=== PATIENT | female | born 1960 | race American Indian/Alaskan Native ===

== ENCOUNTER 2022-01-27 18:15 | Inpatient (IN) | payer MEDICARE ==
[2022-01-27] MEDS ORDERED: LORazepam 2 MG TAB PO PRN (21:49)
[2022-01-27] MEDS ORDERED: ONDANSETRON 4 MG ODT TAB PO PRN (21:51)
[2022-01-28 07:40] LABS: Basophils # (Auto) 0.1 K/mm3 (0.0-0.1); Basophils % (Auto) 1.5 % (0.0-1.8); Eosinophils # (Auto) 0.1 K/mm3 (0.0-0.4); Eosinophils % (Auto) 1.8 % (0.0-4.3); Hematocrit 40.1 % (30.3-42.9); Hemoglobin 13.9 gm/dl (10.1-14.3); Lymphocytes # (Auto) 1.1 K/mm3 (1.2-5.4); Lymphocytes % (Auto) 26.1 % (13.4-35.0); Mean Corpuscular HGB Conc 35 % (30-34); Mean Corpuscular Volume 97 fl (79-97); Monocytes # (Auto) 0.5 K/mm3 (0.0-0.8); Monocytes % (Auto) 10.7 % (0.0-7.3); Platelet Count 189 K/mm3 (140-440); Red Blood Count 4.14 M/mm3 (3.65-5.03); Red Cell Distribution Width 15.8 % (13.2-15.2)
[2022-01-28 08:03] LABS: Albumin 5.1 g/dL (3.9-5); Calcium 9.8 mg/dL (8.4-10.2)
[2022-01-28 08:14] LABS: Chol/HDL Ratio 1.47 %
[2022-01-28 08:22] LABS: Hepatitis B Surface Antigen Non-Reactive (Negative); Hepatitis C Virus Antibody Non-Reactive (NonReactive)
--- NOTE | 2022-01-28 11:05 | History and Physical Report ---
GP History & Physical - History of Present Illness Date of admission: 01/27/22 Date of Examination: 01/28/22 Reason for Admission: Danger to self, Failure of Outpatient Treatment, Severe anxiety/depression History of Present Illness: The patient was seen today. She has a history of schizoaffective disorder and bipolar, htn, seizure, osteoarthritis, diverticulitis TIA. The patient was admitted to [facility] after placing a plastic bag over her 's head, in which the caregiver intervened, according to reports. During my evaluation the patient is lying in bed. She appears withdrawn. Her affect is flat. She denies feeling depressed. She states "I feel okay." She says she was admitted because she got into an argument with her . She says "I made a statement that I would kill my but I didn't mean it." She does not mention the plastic bag incident. The patient says she was drinking. She says she "doesn't drink that much but on weekends." The patient says she drinks a cup of liquor and beer on the weekend. She could not recall what medications she takes for her bipolar. She denies hallucinations of any kind. PAST PSYCHIATRIC HISTORY: Diagnoses: Bipolar, schizoaffective Suicide attempts or Self-harm behavior: Denies Prior psychiatric hospitalizations: Denies Substance Abuse history: alcohol Previous psychiatric medications tried: could not recall Outpatient treatment: Yes PAST MEDICAL HISTORY: SOCIAL HISTORY Marital Status: Living Arrangements: Lives with spouse Employment Status: Disabled Access to guns/weapons: Denies History of Abuse: Denies Legal History: Denies REVIEW OF SYSTEMS Constitutional: Negative for weight loss ENT: Negative for stridor Respiratory: Negative for cough or hemoptysis All other systems reviewed and are negative MENTAL STATUS EXAMINATION General Appearance and Behavior: Age appropriate, wearing appropriate clothes, cooperative Cooperation: cooperative Psychomotor Behavior: Psychomotor normal Mood: "okay" Affect and affective range: flat Thought Process: goal-oriented Thought Content: reality-based Speech: Normal volume, Regular rate and rhythm Suicidal Ideation: Denies Homicidal Ideation: Denies Hallucination: Denies Delusions: Denies Impulse Control: Impaired Insight and Judgment: Limited Memory: Limited Attention: limited Orientation: Alert and oriented to time and person ASSESSMENT Bipolar Disorder Alcohol Use Disorder TREATMENT Patient admitted for inpatient psychiatric evaluation, medication adjustment and close monitoring The patient's behavior, mood, sleep and appetite will be closely monitored. Patient enrolled in individual and group therapeutic sessions and encouraged to attend. Patient provided with a safe and structured environment. Patient's physical health needs will be addressed by the Hospitalist. Hospitalist Consulted Labs including CBC, CMP, Lipid profile and Hemoglobin A1C levels ordered for baseline reference Social Assessment will be completed and the Teacher'S Aide will work with patient and family to ensure a suitable and safe disposition Medication adjustment will be made as clinically indicated Continue medications Usual Wellness Scientology/Preservation: - Start Trazodone 50 mg po QHS & 50 mg po QHS PRN between 10 PM & 2 AM for insomnia - Start Melatonin 5 mg po QHS to promote circadian rhythm The patient agreed on the treatment plan, understood the risk, benefit, alternative treatment, potential consequence of no treatment, and gave informed consent. Estimated days: 7 Post hospital care: primary care provider, psychiatric provider Case staffed with Dr. Bernal Legal Status: Voluntary Reaction to Hospitalization: Accepting Medications and Allergies Allergies Allergy/AdvReac Type Severity Reaction Status Date / Time No Known Allergies Allergy Verified 01/27/22 23:24 Home Medications Medication Instructions Recorded Confirmed Last Taken Type Divalproex ER [Depakote ER] 1,000 mg PO QHS 01/28/22 01/28/22 Unknown History Divalproex ER [Depakote ER] 500 mg PO QAM 01/28/22 01/28/22 Unknown History FLUoxetine HCL [PROzac] 40 mg PO DAILY 01/28/22 01/28/22 Unknown History Losartan [Cozaar] 50 mg PO QDAY 01/28/22 01/28/22 Unknown History Pravastatin [Pravachol] 20 mg PO QHS 01/28/22 01/28/22 Unknown History QUEtiapine [SEROquel] 200 mg PO HS 01/28/22 01/28/22 Unknown History amLODIPine 5 mg PO DAILY 01/28/22 01/28/22 Unknown History Active Meds: Active Medications Lorazepam (Lorazepam 2 Mg Tab) 2 mg PO Q6H PRN PRN Reason: Alcohol Withdrawal Last Admin: 01/27/22 23:30 Dose: 2 mg Ondansetron HCl (Ondansetron 4 Mg Odt Tab) 4 mg PO Q8H PRN PRN Reason: Nausea And Vomiting Last Admin: 01/27/22 23:30 Dose: 4 mg Results - Results Labs/Vitals: Laboratory Last Values WBC 4.4 K/mm3 (4.5-11.0) L 01/28/22 07:21 RBC 4.14 M/mm3 (3.65-5.03) 01/28/22 07:21 Hgb 13.9 gm/dl (10.1-14.3) 01/28/22 07:21 Hct 40.1 % (30.3-42.9) 01/28/22 07:21 MCV 97 fl (79-97) 01/28/22 07:21 MCH 34 pg (28-32) H 01/28/22 07:21 MCHC 35 % (30-34) H 01/28/22 07:21 RDW 15.8 % (13.2-15.2) H 01/28/22 07:21 Plt Count 189 K/mm3 (140-440) 01/28/22 07:21 Lymph % (Auto) 26.1 % (13.4-35.0) 01/28/22 07:21 Tyrrell % (Auto) 10.7 % (0.0-7.3) H 01/28/22 07:21 Eos % (Auto) 1.8 % (0.0-4.3) 01/28/22 07:21 Baso % (Auto) 1.5 % (0.0-1.8) 01/28/22 07:21 Lymph # (Auto) 1.1 K/mm3 (1.2-5.4) L 01/28/22 07:21 Tyrrell # (Auto) 0.5 K/mm3 (0.0-0.8) 01/28/22 07:21 Eos # (Auto) 0.1 K/mm3 (0.0-0.4) 01/28/22 07:21 Baso # (Auto) 0.1 K/mm3 (0.0-0.1) 01/28/22 07:21 Seg Neutrophils % 59.9 % (40.0-70.0) 01/28/22 07:21 Seg Neutrophils # 2.6 K/mm3 (1.8-7.7) 01/28/22 07:21 Sodium 134 mmol/L (137-145) L 01/28/22 07:21 Potassium 3.6 mmol/L (3.6-5.0) 01/28/22 07:21 Chloride 93.0 mmol/L (98-107) L 01/28/22 07:21 Carbon Dioxide 25 mmol/L (22-30) 01/28/22 07:21 Anion Gap 20 mmol/L 01/28/22 07:21 BUN 10 mg/dL (7-17) 01/28/22 07:21 Creatinine 1.2 mg/dL (0.6-1.2) 01/28/22 07:21 Estimated GFR 55 ml/min 01/28/22 07:21 BUN/Creatinine Ratio 8 % 01/28/22 07:21 Glucose 131 mg/dL (65-100) H 01/28/22 07:21 Hemoglobin A1c 5.7 % (4-6) 01/28/22 07:21 Calcium 9.8 mg/dL (8.4-10.2) 01/28/22 07:21 Total Bilirubin 1.10 mg/dL (0.1-1.2) 01/28/22 07:21 AST 36 units/L (5-40) 01/28/22 07:21 ALT 17 units/L (7-56) 01/28/22 07:21 Alkaline Phosphatase 108 units/L (35-129) 01/28/22 07:21 Total Protein 8.3 g/dL (6.3-8.2) H 01/28/22 07:21 Albumin 5.1 g/dL (3.9-5) H 01/28/22 07:21 Albumin/Globulin Ratio 1.6 % 01/28/22 07:21 Triglycerides 90 mg/dL (2-149) 01/28/22 07:21 Cholesterol 363 mg/dL (50-199) H 01/28/22 07:21 LDL Cholesterol Direct 136 mg/dL (50-130) H 01/28/22 07:21 HDL Cholesterol 246 mg/dL (40-59) H 01/28/22 07:21 Cholesterol/HDL Ratio 1.47 % 01/28/22 07:21 Hepatitis A IgM Ab Non-reactive (NonReactive) 01/28/22 07:21 Hep Bs Antigen Non-reactive (Negative) 01/28/22 07:21 Hep B Core IgM Ab Non-reactive (NonReactive) 01/28/22 07:21 Hepatitis C Antibody Non-reactive (NonReactive) 01/28/22 07:21 Last Vital Signs Temp 98.5 F 01/28/22 06:29 Pulse 105 H 01/28/22 06:29 Resp 18 01/28/22 06:29 BP 139/85 01/28/22 06:29 Pulse Ox 91 01/28/22 06:29 Physical Examination - Constitutional Vitals: Vital Signs Temp Pulse Resp BP Pulse Ox 98.5 F 105 H 18 139/85 91 01/28/22 06:29 01/28/22 06:29 01/28/22 06:29 01/28/22 06:29 01/28/22 06:29 Temperature -Last 24 Hours Temperature 98.5 F Temperature 98.1 F Mental Status Exam - Vital signs Last Vital Signs Temp 98.5 F 01/28/22 06:29 Pulse 105 H 01/28/22 06:29 Resp 18 01/28/22 06:29 BP 139/85 01/28/22 06:29 Pulse Ox 91 01/28/22 06:29 Physician Certification - Certification Statement Physician Certification Statement: This is an acknowledgement statement that CHRISTY LEBRON is a 61 year old F who requires inpatient psychiatric admission for treatment which could reasonably be expected to improve the patient's condition for Estimated period of time patient will need to remain in the hospital: [ ] Plan for post-hospital care: [ ]
[2022-01-28] MEDS ORDERED: NON-FORMULARY EACH (Fluoxetine Hcl [Prozac] 40 MG Capsule) PO SCH (11:15)
[2022-01-28] MEDS: amLODIPine 5 MG TAB PO SCH (11:59)
[2022-01-28] MEDS: LOSARTAN 50 MG TAB PO SCH (11:59)
[2022-01-28] MEDS: FLUoxetine 20 MG CAP PO SCH (11:59)
--- NOTE | 2022-01-28 15:46 | Consultation ---
History of Present Illness - Reason for Consult Consult date: 01/28/22 Medical consult Requesting physician: JASON DE GUZMAN - History of Present Illness Patient was admitted with homicidal ideation Hospital service was consulted for medical management 61-year-old female patient with significant past medical history of hypertension, dyslipidemia, seizures, osteoarthritis, diverticulitis and TIA and bipolar disorder, schizoaffective disorder was admitted to [facility] with history of danger to self, failure of outpatient treatment and severe anxiety and depression for further management. Patient was homicidal and trying to hurt her , At the time of my evaluation patient was calm and quiet and response to simple questions appropriately , Patient denies any chest pain or shortness of breath Denies any headache or dizziness denies any nausea vomiting or abdominal pain. Past History Past Medical History: arthritis, hypertension, hyperlipidemia Past Surgical History: No surgical history Social history: alcohol abuse Family history: no significant family history Medications and Allergies Allergies Allergy/AdvReac Type Severity Reaction Status Date / Time No Known Allergies Allergy Verified 01/27/22 23:24 Home Medications Medication Instructions Recorded Confirmed Last Taken Type Divalproex ER [Depakote ER] 1,000 mg PO QHS 01/28/22 01/28/22 Unknown History Divalproex ER [Depakote ER] 500 mg PO QAM 01/28/22 01/28/22 Unknown History FLUoxetine HCL [PROzac] 40 mg PO DAILY 01/28/22 01/28/22 Unknown History Losartan [Cozaar] 50 mg PO QDAY 01/28/22 01/28/22 Unknown History Pravastatin [Pravachol] 20 mg PO QHS 01/28/22 01/28/22 Unknown History QUEtiapine [SEROquel] 200 mg PO HS 01/28/22 01/28/22 Unknown History amLODIPine 5 mg PO DAILY 01/28/22 01/28/22 Unknown History Active Meds: Active Medications Amlodipine Besylate (Amlodipine 5 Mg Tab) 5 mg PO DAILY [facility] Last Admin: 01/28/22 11:59 Dose: 5 mg Divalproex Sodium (Divalproex Er 500 Mg Tab) 500 mg PO QAM [facility] Divalproex Sodium (Divalproex Er 500 Mg Tab) 1,000 mg PO QHS [facility] Fluoxetine HCl (Fluoxetine 20 Mg Cap) 40 mg PO QDAY [facility] Last Admin: 01/28/22 11:59 Dose: 40 mg Lorazepam (Lorazepam 2 Mg Tab) 2 mg PO Q6H PRN PRN Reason: Alcohol Withdrawal Last Admin: 01/27/22 23:30 Dose: 2 mg Losartan Potassium (Losartan 50 Mg Tab) 50 mg PO QDAY [facility] Last Admin: 01/28/22 11:59 Dose: 50 mg Ondansetron HCl (Ondansetron 4 Mg Odt Tab) 4 mg PO Q8H PRN PRN Reason: Nausea And Vomiting Last Admin: 01/27/22 23:30 Dose: 4 mg Pravastatin Sodium (Pravastatin 20 Mg Tab) 20 mg PO QHS [facility] Review of Systems Constitutional: fatigue, weakness, no weight loss, no weight gain Ears, nose, mouth and throat: no nasal congestion, no nasal discharge Cardiovascular: no chest pain, no orthopnea, no palpitations Respiratory: no cough, no shortness of breath Gastrointestinal: no abdominal pain, no nausea, no vomiting Musculoskeletal: no myalgias, no arthritis Integumentary: no rash, no lesions Neurological: no syncope, no tremors Psychiatric: anxiety, depression Hematologic/Lymphatic: no easy bruising, no easy bleeding Allergic/Immunologic: no urticaria, no allergic rhinitis Exam - Constitutional Vitals: Temp Pulse Resp BP Pulse Ox 98.5 F 105 H 18 139/85 91 01/28/22 06:29 01/28/22 11:59 01/28/22 06:29 01/28/22 11:59 01/28/22 06:29 General appearance: Present: no acute distress, well-nourished - EENT Eyes: Present: PERRL, EOM intact - Neck Neck: Present: supple, normal ROM - Cardiovascular Rhythm: regular Heart Sounds: Present: S1 & S2 - Extremities Extremities: no ischemia, No edema - Abdominal General gastrointestinal: Present: soft, non-tender, normal bowel sounds - Integumentary Integumentary: Present: clear, warm - Musculoskeletal Musculoskeletal: strength equal bilaterally, generalized weakness - Psychiatric Psychiatric: appropriate mood/affect - Neurologic Neurologic: moves all extremities Results - Labs CBC & Chem 7: 01/28/22 07:21 01/28/22 07:21 Labs: Abnormal lab results 01/28/22 01/28/22 Range/Units 07:21 07:21 WBC 4.4 L (4.5-11.0) K/mm3 MCH 34 H (28-32) pg MCHC 35 H (30-34) % RDW 15.8 H (13.2-15.2) % Crane % (Auto) 10.7 H (0.0-7.3) % Lymph # (Auto) 1.1 L (1.2-5.4) K/mm3 Sodium 134 L (137-145) mmol/L Chloride 93.0 L (98-107) mmol/L Glucose 131 H (65-100) mg/dL Total Protein 8.3 H (6.3-8.2) g/dL Albumin 5.1 H (3.9-5) g/dL Cholesterol 363 H (50-199) mg/dL LDL Cholesterol Direct 136 H (50-130) mg/dL HDL Cholesterol 246 H (40-59) mg/dL Assessment and Plan Hypertension; moderate control Resume home antihypertensives As needed medications Dyslipidemia; continue low-cholesterol diet Statin and supportive care Hyponatremia; closely monitor electrolytes Consider normal saline, sodium chloride pills Gastroesophageal reflux disease--; Pepcid, supportive care -- DVT prophylaxis SCDs while resting Ambulate as tolerated We will closely monitor the patient and adjust management as needed; Thank you for this consultation we will follow the patient along with you Call us with questions
[2022-01-28] MEDS: DIVALPROEX ER 500 MG TAB PO SCH (21:09)
[2022-01-28] MEDS: PRAVASTATIN 20 MG TAB PO SCH (21:10)
[2022-01-29] MEDS: LOSARTAN 50 MG TAB PO SCH (09:03)
[2022-01-29] MEDS: DIVALPROEX ER 500 MG TAB PO SCH ×2 (09:03→21:10)
[2022-01-29] MEDS: FLUoxetine 20 MG CAP PO SCH (09:03)
[2022-01-29] MEDS: amLODIPine 5 MG TAB PO SCH (09:03)
--- NOTE | 2022-01-29 11:34 | Progress Note ---
Subjective Date of service: 01/29/22 Principal diagnosis: Bipolar Disorder Subjective Comment: The patient was seen today. She is lying in bed. She appears depressed, although she denies. Her affect if flat. She denies SI/HI. I ask her about the situation of her putting a plastic bag over her husbands head. She says "I tried to. I was tired of him calling me names." She says "I really was just trying to scare him." She denies hallucinations. REVIEW OF SYSTEMS Constitutional: Negative for weight loss ENT: Negative for stridor Respiratory: Negative for cough or hemoptysis All other systems reviewed and are negative MENTAL STATUS EXAMINATION General Appearance and Behavior: Age appropriate, wearing appropriate clothes, cooperative Cooperation: cooperative Psychomotor Behavior: Psychomotor normal Mood: "okay" Affect and affective range: flat Thought Process: goal-oriented Thought Content: reality-based Speech: Normal volume, Regular rate and rhythm Suicidal Ideation: Denies Homicidal Ideation: Denies Hallucination: Denies Delusions: Denies Impulse Control: Impaired Insight and Judgment: Limited Memory: Limited Attention: limited Orientation: Alert and oriented to time and person ASSESSMENT Bipolar Disorder Alcohol Use Disorder TREATMENT Patient admitted for inpatient psychiatric evaluation, medication adjustment and close monitoring The patient's behavior, mood, sleep and appetite will be closely monitored. Patient enrolled in individual and group therapeutic sessions and encouraged to attend. Patient provided with a safe and structured environment. Patient's physical health needs will be addressed by the Hospitalist. Hospitalist Consulted Labs including CBC, CMP, Lipid profile and Hemoglobin A1C levels ordered for baseline reference Social Assessment will be completed and the Dry Transfer Man will work with patient and family to ensure a suitable and safe disposition Medication adjustment will be made as clinically indicated Continue medications Usual Wellness Quaker/Preservation: - Start Trazodone 50 mg po QHS & 50 mg po QHS PRN between 10 PM & 2 AM for insomnia - Start Melatonin 5 mg po QHS to promote circadian rhythm The patient agreed on the treatment plan, understood the risk, benefit, alternative treatment, potential consequence of no treatment, and gave informed consent. Estimated days: 7 Post hospital care: primary care provider, psychiatric provider Case staffed with Dr. Bernal Medications and Allergies Allergies Allergy/AdvReac Type Severity Reaction Status Date / Time No Known Allergies Allergy Verified 01/27/22 23:24 Home Medications Medication Instructions Recorded Confirmed Last Taken Type Divalproex ER [Depakote ER] 1,000 mg PO QHS 01/28/22 01/28/22 Unknown History Divalproex ER [Depakote ER] 500 mg PO QAM 01/28/22 01/28/22 Unknown History FLUoxetine HCL [PROzac] 40 mg PO DAILY 01/28/22 01/28/22 Unknown History Losartan [Cozaar] 50 mg PO QDAY 01/28/22 01/28/22 Unknown History Pravastatin [Pravachol] 20 mg PO QHS 01/28/22 01/28/22 Unknown History QUEtiapine [SEROquel] 200 mg PO HS 01/28/22 01/28/22 Unknown History amLODIPine 5 mg PO DAILY 01/28/22 01/28/22 Unknown History Active Meds: Active Medications Amlodipine Besylate (Amlodipine 5 Mg Tab) 5 mg PO DAILY [facility] Last Admin: 01/29/22 09:03 Dose: 5 mg Divalproex Sodium ([facility]ex Er 500 Mg Tab) [facility] [place] Last Admin: 01/29/22 09:03 Dose: 500 mg Divalproex Sodium (Divalproex Er 500 Mg Tab) 1,000 mg PO QHS [facility] Last Admin: 01/28/22 21:09 Dose: 1,000 mg Fluoxetine HCl (Fluoxetine 20 Mg Cap) 40 mg PO QDAY [facility] Last Admin: 01/29/22 09:03 Dose: 40 mg Lorazepam (Lorazepam 2 Mg Tab) 2 mg PO Q6H PRN PRN Reason: Alcohol Withdrawal Last Admin: 01/27/22 23:30 Dose: 2 mg Losartan Potassium (Losartan 50 Mg Tab) 50 mg PO QDAY [facility] Last Admin: 01/29/22 09:03 Dose: 50 mg Ondansetron HCl (Ondansetron 4 Mg Odt Tab) 4 mg PO Q8H PRN PRN Reason: Nausea And Vomiting Last Admin: 01/27/22 23:30 Dose: 4 mg Pravastatin Sodium (Pravastatin 20 Mg Tab) 20 mg PO QHS [facility] Last Admin: 01/28/22 21:10 Dose: 20 mg Results - Results Labs/Vitals: Laboratory Last Values WBC 4.4 K/mm3 (4.5-11.0) L 01/28/22 07:21 RBC 4.14 M/mm3 (3.65-5.03) 01/28/22 07:21 Hgb 13.9 gm/dl (10.1-14.3) 01/28/22 07:21 Hct 40.1 % (30.3-42.9) 01/28/22 07:21 MCV 97 fl (79-97) 01/28/22 07:21 MCH 34 pg (28-32) H 01/28/22 07:21 MCHC 35 % (30-34) H 01/28/22 07:21 RDW 15.8 % (13.2-15.2) H 01/28/22 07:21 Plt Count 189 K/mm3 (140-440) 01/28/22 07:21 Lymph % (Auto) 26.1 % (13.4-35.0) 01/28/22 07:21 Mcdonough % (Auto) 10.7 % (0.0-7.3) H 01/28/22 07:21 Eos % (Auto) 1.8 % (0.0-4.3) 01/28/22 07:21 Baso % (Auto) 1.5 % (0.0-1.8) 01/28/22 07:21 Lymph # (Auto) 1.1 K/mm3 (1.2-5.4) L 01/28/22 07:21 Mcdonough # (Auto) 0.5 K/mm3 (0.0-0.8) 01/28/22 07:21 Eos # (Auto) 0.1 K/mm3 (0.0-0.4) 01/28/22 07:21 Baso # (Auto) 0.1 K/mm3 (0.0-0.1) 01/28/22 07:21 Seg Neutrophils % 59.9 % (40.0-70.0) 01/28/22 07:21 Seg Neutrophils # 2.6 K/mm3 (1.8-7.7) 01/28/22 07:21 Sodium 134 mmol/L (137-145) L 01/28/22 07:21 Potassium 3.6 mmol/L (3.6-5.0) 01/28/22 07:21 Chloride 93.0 mmol/L (98-107) L 01/28/22 07:21 Carbon Dioxide 25 mmol/L (22-30) 01/28/22 07:21 Anion Gap 20 mmol/L 01/28/22 07:21 BUN 10 mg/dL (7-17) 01/28/22 07:21 Creatinine 1.2 mg/dL (0.6-1.2) 01/28/22 07:21 Estimated GFR 55 ml/min 01/28/22 07:21 BUN/Creatinine Ratio 8 % 01/28/22 07:21 Glucose 131 mg/dL (65-100) H 01/28/22 07:21 Hemoglobin A1c 5.7 % (4-6) 01/28/22 07:21 Calcium 9.8 mg/dL (8.4-10.2) 01/28/22 07:21 Total Bilirubin 1.10 mg/dL (0.1-1.2) 01/28/22 07:21 AST 36 units/L (5-40) 01/28/22 07:21 ALT 17 units/L (7-56) 01/28/22 07:21 Alkaline Phosphatase 108 units/L (35-129) 01/28/22 07:21 Total Protein 8.3 g/dL (6.3-8.2) H 01/28/22 07:21 Albumin 5.1 g/dL (3.9-5) H 01/28/22 07:21 Albumin/Globulin Ratio 1.6 % 01/28/22 07:21 Triglycerides 90 mg/dL (2-149) 01/28/22 07:21 Cholesterol 363 mg/dL (50-199) H 01/28/22 07:21 LDL Cholesterol Direct 136 mg/dL (50-130) H 01/28/22 07:21 HDL Cholesterol 246 mg/dL (40-59) H 01/28/22 07:21 Cholesterol/HDL Ratio 1.47 % 01/28/22 07:21 Hepatitis A IgM Ab Non-reactive (NonReactive) 01/28/22 07:21 Hep Bs Antigen Non-reactive (Negative) 01/28/22 07:21 Hep B Core IgM Ab Non-reactive (NonReactive) 01/28/22 07:21 Hepatitis C Antibody Non-reactive (NonReactive) 01/28/22 07:21 Last Vital Signs Temp 98.2 F 01/29/22 05:46 Pulse 107 H 01/29/22 09:03 Resp 20 01/29/22 05:46 BP 129/95 01/29/22 09:03 Pulse Ox 96 01/29/22 05:46
[2022-01-29] MEDS: PRAVASTATIN 20 MG TAB PO SCH (21:10)
[2022-01-30] MEDS: amLODIPine 5 MG TAB PO SCH (09:19)
[2022-01-30] MEDS: LOSARTAN 50 MG TAB PO SCH (09:20)
[2022-01-30] MEDS: FLUoxetine 20 MG CAP PO SCH (09:20)
[2022-01-30] MEDS: DIVALPROEX ER 500 MG TAB PO SCH ×2 (09:21→21:04)
--- NOTE | 2022-01-30 10:45 | Progress Note ---
Assessment and Plan - Patient Problems (1) Vascular dementia with behavior disturbance Status: Acute Plan to address problem: Verbal prompt, verbal redirection, benzodiazepine therapy as clinically indicated. (2) Cerebral atherosclerosis Status: Acute Plan to address problem: Risk factor reduction, antiplatelet therapy as clinical indicated (3) Bipolar disorder Status: Acute Plan to address problem: Continue medical medical management, supportive care History Interval history: 61-year-old female with vascular mention, cerebral atherosclerosis, hypertension, hyperlipidemia, seizure disorder osteoarthritis, bipolar disorder, schizoaffective disorder admitted to [facility] for psychiatric stabilization. Patient seen and evaluated in the recreation room. No reported nursing events. Patient denies pain. Patient appears to be at baseline level of cognition and function. Hospitalist Physical - Constitutional Vitals: Temp Pulse Resp BP Pulse Ox 98.6 F 90 18 121/80 99 01/29/22 17:13 01/30/22 09:20 01/29/22 17:13 01/30/22 09:20 01/29/22 17:13 General appearance: Present: no acute distress, well-nourished - EENT Eyes: Present: PERRL ENT: hearing intact - Neck Neck: Present: supple - Respiratory Respiratory effort: normal Respiratory: bilateral: diminished - Cardiovascular Rhythm: regular Heart Sounds: Present: S1 & S2 - Extremities Extremities: no ischemia Peripheral Pulses: within normal limits - Abdominal General gastrointestinal: soft, non-tender, non-distended - Integumentary Integumentary: Present: clear, dry - Psychiatric Psychiatric: cooperative - Neurologic Neurologic: CNII-XII intact Results - Labs CBC & Chem 7: 01/28/22 07:21 01/28/22 07:21 Labs: Laboratory Last Values WBC 4.4 K/mm3 (4.5-11.0) L 01/28/22 07:21 RBC 4.14 M/mm3 (3.65-5.03) 01/28/22 07:21 Hgb 13.9 gm/dl (10.1-14.3) 01/28/22 07:21 Hct 40.1 % (30.3-42.9) 01/28/22 07:21 MCV 97 fl (79-97) 01/28/22 07:21 MCH 34 pg (28-32) H 01/28/22 07:21 MCHC 35 % (30-34) H 01/28/22 07:21 RDW 15.8 % (13.2-15.2) H 01/28/22 07:21 Plt Count 189 K/mm3 (140-440) 01/28/22 07:21 Lymph % (Auto) 26.1 % (13.4-35.0) 01/28/22 07:21 [place] % (Auto) 10.7 % (0.0-7.3) H 01/28/22 07:21 Eos % (Auto) 1.8 % (0.0-4.3) 01/28/22 07:21 Baso % (Auto) 1.5 % (0.0-1.8) 01/28/22 07:21 Lymph # (Auto) 1.1 K/mm3 (1.2-5.4) L 01/28/22 07:21 [place] # (Auto) 0.5 K/mm3 (0.0-0.8) 01/28/22 07:21 Eos # (Auto) 0.1 K/mm3 (0.0-0.4) 01/28/22 07:21 Baso # (Auto) 0.1 K/mm3 (0.0-0.1) 01/28/22 07:21 Seg Neutrophils % 59.9 % (40.0-70.0) 01/28/22 07:21 Seg Neutrophils # 2.6 K/mm3 (1.8-7.7) 01/28/22 07:21 Sodium 134 mmol/L (137-145) L 01/28/22 07:21 Potassium 3.6 mmol/L (3.6-5.0) 01/28/22 07:21 Chloride 93.0 mmol/L (98-107) L 01/28/22 07:21 Carbon Dioxide 25 mmol/L (22-30) 01/28/22 07:21 Anion Gap 20 mmol/L 01/28/22 07:21 BUN 10 mg/dL (7-17) 01/28/22 07:21 Creatinine 1.2 mg/dL (0.6-1.2) 01/28/22 07:21 Estimated GFR 55 ml/min 01/28/22 07:21 BUN/Creatinine Ratio 8 % 01/28/22 07:21 Glucose 131 mg/dL (65-100) H 01/28/22 07:21 Hemoglobin A1c 5.7 % (4-6) 01/28/22 07:21 Calcium 9.8 mg/dL (8.4-10.2) 01/28/22 07:21 Total Bilirubin 1.10 mg/dL (0.1-1.2) 01/28/22 07:21 AST 36 units/L (5-40) 01/28/22 07:21 ALT 17 units/L (7-56) 01/28/22 07:21 Alkaline Phosphatase 108 units/L (35-129) 01/28/22 07:21 Total Protein 8.3 g/dL (6.3-8.2) H 01/28/22 07:21 Albumin 5.1 g/dL (3.9-5) H 01/28/22 07:21 Albumin/Globulin Ratio 1.6 % 01/28/22 07:21 Triglycerides 90 mg/dL (2-149) 01/28/22 07:21 Cholesterol 363 mg/dL (50-199) H 01/28/22 07:21 LDL Cholesterol Direct 136 mg/dL (50-130) H 01/28/22 07:21 HDL Cholesterol 246 mg/dL (40-59) H 01/28/22 07:21 Cholesterol/HDL Ratio 1.47 % 01/28/22 07:21 Hepatitis A IgM Ab Non-reactive (NonReactive) 01/28/22 07:21 Hep Bs Antigen Non-reactive (Negative) 01/28/22 07:21 Hep B Core IgM Ab Non-reactive (NonReactive) 01/28/22 07:21 Hepatitis C Antibody Non-reactive (NonReactive) 01/28/22 07:21 Valerio/IV: Voiding Method Toilet Active Medications - Current Medications Current Medications: Generic Name Dose Route Start Last Admin Trade Name Freq PRN Reason Stop Dose Admin Amlodipine Besylate 5 mg 01/28/22 12:00 01/30/22 09:19 Amlodipine 5 Mg Tab PO 5 mg DAILY SARAH Administration Divalproex Sodium 500 mg 01/29/22 10:00 01/30/22 09:21 Divalproex Er 500 Mg Tab PO 500 mg QAM SARAH Administration Divalproex Sodium 1,000 mg 01/28/22 22:00 01/29/22 21:10 Divalproex Er 500 Mg Tab PO 1,000 mg QHS SARAH Administration Fluoxetine HCl 40 mg 01/28/22 11:15 01/30/22 09:20 Fluoxetine 20 Mg Cap PO 40 mg QDAY SARAH Administration Lorazepam 2 mg 01/27/22 21:49 01/27/22 23:30 Lorazepam 2 Mg Tab PO 2 mg Q6H PRN Administration Alcohol Withdrawal Losartan Potassium 50 mg 01/28/22 12:00 01/30/22 09:20 Losartan 50 Mg Tab PO 50 mg QDAY SARAH Administration Ondansetron HCl 4 mg 01/27/22 21:51 01/27/22 23:30 Ondansetron 4 Mg Odt Tab PO 4 mg Q8H PRN Administration Nausea And Vomiting Pravastatin Sodium 20 mg 01/28/22 22:00 01/29/22 21:10 Pravastatin 20 Mg Tab PO 20 mg QHS SARAH Administration
--- NOTE | 2022-01-30 12:30 | Progress Note ---
Subjective Date of service: 01/30/22 Principal diagnosis: Bipolar Disorder Subjective Comment: The patient was seen today. She is lying in bed. She says she feels better about the situation with her . She says "I'm not going to do that again," when asked about how she felt. The patient looks depressed, but she states she feels fine. She denies SI/HI or hallucinations of any kind. She will discharge tomorrow if night uneventful. REVIEW OF SYSTEMS Constitutional: Negative for weight loss ENT: Negative for stridor Respiratory: Negative for cough or hemoptysis All other systems reviewed and are negative MENTAL STATUS EXAMINATION General Appearance and Behavior: Age appropriate, wearing appropriate clothes, cooperative Cooperation: cooperative Psychomotor Behavior: Psychomotor normal Mood: "fine" Affect and affective range: flat Thought Process: goal-oriented Thought Content: reality-based Speech: Normal volume, Regular rate and rhythm Suicidal Ideation: Denies Homicidal Ideation: Denies Hallucination: Denies Delusions: Denies Impulse Control: Impaired Insight and Judgment: Limited Memory: Limited Attention: limited Orientation: Alert and oriented to time and person ASSESSMENT Bipolar Disorder Alcohol Use Disorder TREATMENT Patient admitted for inpatient psychiatric evaluation, medication adjustment and close monitoring The patient's behavior, mood, sleep and appetite will be closely monitored. Patient enrolled in individual and group therapeutic sessions and encouraged to attend. Patient provided with a safe and structured environment. Patient's physical health needs will be addressed by the Hospitalist. Hospitalist Consulted Labs including CBC, CMP, Lipid profile and Hemoglobin A1C levels ordered for baseline reference Social Assessment will be completed and the [facility] will work with patient and family to ensure a suitable and safe disposition Medication adjustment will be made as clinically indicated Continue medications Usual Wellness Restorationist/Preservation: - Start Trazodone 50 mg po QHS & 50 mg po QHS PRN between 10 PM & 2 AM for insomnia - Start Melatonin 5 mg po QHS to promote circadian rhythm The patient agreed on the treatment plan, understood the risk, benefit, alternative treatment, potential consequence of no treatment, and gave informed consent. Estimated days: 7 Post hospital care: primary care provider, psychiatric provider Case staffed with Dr. Bernal Medications and Allergies Allergies Allergy/AdvReac Type Severity Reaction Status Date / Time No Known Allergies Allergy Verified 01/27/22 23:24 Home Medications Medication Instructions Recorded Confirmed Last Taken Type Divalproex ER [Depakote ER] 1,000 mg PO QHS 01/28/22 01/28/22 Unknown History Divalproex ER [Depakote ER] 500 mg PO QAM 01/28/22 01/28/22 Unknown History FLUoxetine HCL [PROzac] 40 mg PO DAILY 01/28/22 01/28/22 Unknown History Losartan [Cozaar] 50 mg PO QDAY 01/28/22 01/28/22 Unknown History Pravastatin [Pravachol] 20 mg PO QHS 01/28/22 01/28/22 Unknown History QUEtiapine [SEROquel] 200 mg PO HS 01/28/22 01/28/22 Unknown History amLODIPine 5 mg PO DAILY 01/28/22 01/28/22 Unknown History Active Meds: Active Medications Amlodipine Besylate (Amlodipine 5 Mg Tab) 5 mg PO DAILY [facility] Last Admin: 01/30/22 09:19 Dose: 5 mg Divalproex Sodium (Divalproex Er 500 Mg Tab) 500 mg PO QAM [facility] Last Admin: 01/30/22 09:21 Dose: 500 mg Divalproex Sodium (Divalproex Er 500 Mg Tab) 1,000 mg PO QHS [facility] Last Admin: 01/29/22 21:10 Dose: 1,000 mg Fluoxetine HCl (Fluoxetine 20 Mg Cap) 40 mg PO QDAY [facility] Last Admin: 01/30/22 09:20 Dose: 40 mg Lorazepam (Lorazepam 2 Mg Tab) 2 mg PO Q6H PRN PRN Reason: Alcohol Withdrawal Last Admin: 01/27/22 23:30 Dose: 2 mg Losartan Potassium (Losartan 50 Mg Tab) 50 mg PO QDAY [facility] Last Admin: 01/30/22 09:20 Dose: 50 mg Ondansetron HCl (Ondansetron 4 Mg Odt Tab) 4 mg PO Q8H PRN PRN Reason: Nausea And Vomiting Last Admin: 01/27/22 23:30 Dose: 4 mg Pravastatin Sodium (Pravastatin 20 Mg Tab) 20 mg PO QHS [facility] Last Admin: 01/29/22 21:10 Dose: 20 mg Results - Results Labs/Vitals: Laboratory Last Values WBC 4.4 K/mm3 (4.5-11.0) L 01/28/22 07:21 RBC 4.14 M/mm3 (3.65-5.03) 01/28/22 07:21 Hgb 13.9 gm/dl (10.1-14.3) 01/28/22 07:21 Hct 40.1 % (30.3-42.9) 01/28/22 07:21 MCV 97 fl (79-97) 01/28/22 07:21 MCH 34 pg (28-32) H 01/28/22 07:21 MCHC 35 % (30-34) H 01/28/22 07:21 RDW 15.8 % (13.2-15.2) H 01/28/22 07:21 Plt Count 189 K/mm3 (140-440) 01/28/22 07:21 Lymph % (Auto) 26.1 % (13.4-35.0) 01/28/22 07:21 [place] % (Auto) 10.7 % (0.0-7.3) H 01/28/22 07:21 Eos % (Auto) 1.8 % (0.0-4.3) 01/28/22 07:21 Baso % (Auto) 1.5 % (0.0-1.8) 01/28/22 07:21 Lymph # (Auto) 1.1 K/mm3 (1.2-5.4) L 01/28/22 07:21 [place] # (Auto) 0.5 K/mm3 (0.0-0.8) 01/28/22 07:21 Eos # (Auto) 0.1 K/mm3 (0.0-0.4) 01/28/22 07:21 Baso # (Auto) 0.1 K/mm3 (0.0-0.1) 01/28/22 07:21 Seg Neutrophils % 59.9 % (40.0-70.0) 01/28/22 07:21 Seg Neutrophils # 2.6 K/mm3 (1.8-7.7) 01/28/22 07:21 Sodium 134 mmol/L (137-145) L 01/28/22 07:21 Potassium 3.6 mmol/L (3.6-5.0) 01/28/22 07:21 Chloride 93.0 mmol/L (98-107) L 01/28/22 07:21 Carbon Dioxide 25 mmol/L (22-30) 01/28/22 07:21 Anion Gap 20 mmol/L 01/28/22 07:21 BUN 10 mg/dL (7-17) 01/28/22 07:21 Creatinine 1.2 mg/dL (0.6-1.2) 01/28/22 07:21 Estimated GFR 55 ml/min 01/28/22 07:21 BUN/Creatinine Ratio 8 % 01/28/22 07:21 Glucose 131 mg/dL (65-100) H 01/28/22 07:21 Hemoglobin A1c 5.7 % (4-6) 01/28/22 07:21 Calcium 9.8 mg/dL (8.4-10.2) 01/28/22 07:21 Total Bilirubin 1.10 mg/dL (0.1-1.2) 01/28/22 07:21 AST 36 units/L (5-40) 01/28/22 07:21 ALT 17 units/L (7-56) 01/28/22 07:21 Alkaline Phosphatase 108 units/L (35-129) 01/28/22 07:21 Total Protein 8.3 g/dL (6.3-8.2) H 01/28/22 07:21 Albumin 5.1 g/dL (3.9-5) H 01/28/22 07:21 Albumin/Globulin Ratio 1.6 % 01/28/22 07:21 Triglycerides 90 mg/dL (2-149) 01/28/22 07:21 Cholesterol 363 mg/dL (50-199) H 01/28/22 07:21 LDL Cholesterol Direct 136 mg/dL (50-130) H 01/28/22 07:21 HDL Cholesterol 246 mg/dL (40-59) H 01/28/22 07:21 Cholesterol/HDL Ratio 1.47 % 01/28/22 07:21 Hepatitis A IgM Ab Non-reactive (NonReactive) 01/28/22 07:21 Hep Bs Antigen Non-reactive (Negative) 01/28/22 07:21 Hep B Core IgM Ab Non-reactive (NonReactive) 01/28/22 07:21 Hepatitis C Antibody Non-reactive (NonReactive) 01/28/22 07:21 Last Vital Signs Temp 98.6 F 01/29/22 17:13 Pulse 90 01/30/22 09:20 Resp 18 01/29/22 17:13 BP 121/80 01/30/22 09:20 Pulse Ox 99 01/29/22 17:13
[2022-01-30] MEDS: PRAVASTATIN 20 MG TAB PO SCH (21:03)
[2022-01-31] MEDS: FLUoxetine 20 MG CAP PO SCH (09:41)
[2022-01-31] MEDS: DIVALPROEX ER 500 MG TAB PO SCH ×2 (09:41→21:16)
[2022-01-31] MEDS: LOSARTAN 50 MG TAB PO SCH (09:43)
[2022-01-31] MEDS: amLODIPine 5 MG TAB PO SCH (09:44)
--- NOTE | 2022-01-31 10:55 | Progress Note ---
Subjective Date of service: 01/31/22 Principal diagnosis: Bipolar Disorder Subjective Comment: The patient was seen today. She is lying in bed. She says she feels fine. She denies SI/HI or hallucinations of any kind. REVIEW OF SYSTEMS Constitutional: Negative for weight loss ENT: Negative for stridor Respiratory: Negative for cough or hemoptysis All other systems reviewed and are negative MENTAL STATUS EXAMINATION General Appearance and Behavior: Age appropriate, wearing appropriate clothes, cooperative Cooperation: cooperative Psychomotor Behavior: Psychomotor normal Mood: "fine" Affect and affective range: flat Thought Process: goal-oriented Thought Content: reality-based Speech: Normal volume, Regular rate and rhythm Suicidal Ideation: Denies Homicidal Ideation: Denies Hallucination: Denies Delusions: Denies Impulse Control: Impaired Insight and Judgment: Limited Memory: Limited Attention: limited Orientation: Alert and oriented to time and person ASSESSMENT Bipolar Disorder Alcohol Use Disorder TREATMENT Patient admitted for inpatient psychiatric evaluation, medication adjustment and close monitoring The patient's behavior, mood, sleep and appetite will be closely monitored. Patient enrolled in individual and group therapeutic sessions and encouraged to attend. Patient provided with a safe and structured environment. Patient's physical health needs will be addressed by the Hospitalist. Hospitalist Consulted Labs including CBC, CMP, Lipid profile and Hemoglobin A1C levels ordered for baseline reference Social Assessment will be completed and the [facility] [employer] Manager will work with patient and family to ensure a suitable and safe disposition Medication adjustment will be made as clinically indicated Continue medications Usual Wellness Faith/Preservation: - Start Trazodone 50 mg po QHS & 50 mg po QHS PRN between 10 PM & 2 AM for insomnia - Start Melatonin 5 mg po QHS to promote circadian rhythm The patient agreed on the treatment plan, understood the risk, benefit, alternative treatment, potential consequence of no treatment, and gave informed consent. Estimated days: 7 Post hospital care: primary care provider, psychiatric provider Case staffed with Dr. Bernal Medications and Allergies Allergies Allergy/AdvReac Type Severity Reaction Status Date / Time No Known Allergies Allergy Verified 01/27/22 23:24 Home Medications Medication Instructions Recorded Confirmed Last Taken Type Divalproex ER [Depakote ER] 1,000 mg PO QHS 01/28/22 01/28/22 Unknown History Divalproex ER [Depakote ER] 500 mg PO QAM 01/28/22 01/28/22 Unknown History FLUoxetine HCL [PROzac] 40 mg PO DAILY 01/28/22 01/28/22 Unknown History Losartan [Cozaar] 50 mg PO QDAY 01/28/22 01/28/22 Unknown History Pravastatin [Pravachol] 20 mg PO QHS 01/28/22 01/28/22 Unknown History QUEtiapine [SEROquel] 200 mg PO HS 01/28/22 01/28/22 Unknown History amLODIPine 5 mg PO DAILY 01/28/22 01/28/22 Unknown History Active Meds: Active Medications Amlodipine Besylate (Amlodipine 5 Mg Tab) 5 mg PO DAILY [facility] Last Admin: 01/31/22 09:44 Dose: Not Given Divalproex Sodium (Divalproex Er 500 Mg Tab) 500 mg PO [facility] Last Admin: 01/31/22 09:41 Dose: 500 mg Divalproex Sodium (Divalproex Er 500 Mg Tab) 1,000 mg PO QHS [facility] Last Admin: 01/30/22 21:04 Dose: 1,000 mg Fluoxetine HCl (Fluoxetine 20 Mg Cap) 40 mg PO QDAY [facility] Last Admin: 01/31/22 09:41 Dose: 40 mg Lorazepam (Lorazepam 2 Mg Tab) 2 mg PO Q6H PRN PRN Reason: Alcohol Withdrawal Last Admin: 01/27/22 23:30 Dose: 2 mg Losartan Potassium (Losartan 50 Mg Tab) 50 mg PO QDAY [facility] Last Admin: 01/31/22 09:43 Dose: Not Given Ondansetron HCl (Ondansetron 4 Mg Odt Tab) 4 mg PO Q8H PRN PRN Reason: Nausea And Vomiting Last Admin: 01/27/22 23:30 Dose: 4 mg Pravastatin Sodium (Pravastatin 20 Mg Tab) 20 mg PO QHS [facility] Last Admin: 01/30/22 21:03 Dose: 20 mg Results - Results Labs/Vitals: Laboratory Last Values WBC 4.4 K/mm3 (4.5-11.0) L 01/28/22 07:21 RBC 4.14 M/mm3 (3.65-5.03) 01/28/22 07:21 Hgb 13.9 gm/dl (10.1-14.3) 01/28/22 07:21 Hct 40.1 % (30.3-42.9) 01/28/22 07:21 MCV 97 fl (79-97) 01/28/22 07:21 MCH 34 pg (28-32) H 01/28/22 07:21 MCHC 35 % (30-34) H 01/28/22 07:21 RDW 15.8 % (13.2-15.2) H 01/28/22 07:21 Plt Count 189 K/mm3 (140-440) 01/28/22 07:21 Lymph % (Auto) 26.1 % (13.4-35.0) 01/28/22 07:21 [place] % (Auto) 10.7 % (0.0-7.3) H 01/28/22 07:21 Eos % (Auto) 1.8 % (0.0-4.3) 01/28/22 07:21 Baso % (Auto) 1.5 % (0.0-1.8) 01/28/22 07:21 Lymph # (Auto) 1.1 K/mm3 (1.2-5.4) L 01/28/22 07:21 [place] # (Auto) 0.5 K/mm3 (0.0-0.8) 01/28/22 07:21 Eos # (Auto) 0.1 K/mm3 (0.0-0.4) 01/28/22 07:21 Baso # (Auto) 0.1 K/mm3 (0.0-0.1) 01/28/22 07:21 Seg Neutrophils % 59.9 % (40.0-70.0) 01/28/22 07:21 Seg Neutrophils # 2.6 K/mm3 (1.8-7.7) 01/28/22 07:21 Sodium 134 mmol/L (137-145) L 01/28/22 07:21 Potassium 3.6 mmol/L (3.6-5.0) 01/28/22 07:21 Chloride 93.0 mmol/L (98-107) L 01/28/22 07:21 Carbon Dioxide 25 mmol/L (22-30) 01/28/22 07:21 Anion Gap 20 mmol/L 01/28/22 07:21 BUN 10 mg/dL (7-17) 01/28/22 07:21 Creatinine 1.2 mg/dL (0.6-1.2) 01/28/22 07:21 Estimated GFR 55 ml/min 01/28/22 07:21 BUN/Creatinine Ratio 8 % 01/28/22 07:21 Glucose 131 mg/dL (65-100) H 01/28/22 07:21 Hemoglobin A1c 5.7 % (4-6) 01/28/22 07:21 Calcium 9.8 mg/dL (8.4-10.2) 01/28/22 07:21 Total Bilirubin 1.10 mg/dL (0.1-1.2) 01/28/22 07:21 AST 36 units/L (5-40) 01/28/22 07:21 ALT 17 units/L (7-56) 01/28/22 07:21 Alkaline Phosphatase 108 units/L (35-129) 01/28/22 07:21 Total Protein 8.3 g/dL (6.3-8.2) H 01/28/22 07:21 Albumin 5.1 g/dL (3.9-5) H 01/28/22 07:21 Albumin/Globulin Ratio 1.6 % 01/28/22 07:21 Triglycerides 90 mg/dL (2-149) 01/28/22 07:21 Cholesterol 363 mg/dL (50-199) H 01/28/22 07:21 LDL Cholesterol Direct 136 mg/dL (50-130) H 01/28/22 07:21 HDL Cholesterol 246 mg/dL (40-59) H 01/28/22 07:21 Cholesterol/HDL Ratio 1.47 % 01/28/22 07:21 Hepatitis A IgM Ab Non-reactive (NonReactive) 01/28/22 07:21 Hep Bs Antigen Non-reactive (Negative) 01/28/22 07:21 Hep B Core IgM Ab Non-reactive (NonReactive) 01/28/22 07:21 Hepatitis C Antibody Non-reactive (NonReactive) 01/28/22 07:21 Last Vital Signs Temp 98.2 F 01/31/22 06:04 Pulse 89 01/31/22 09:44 Resp 18 01/31/22 06:04 BP 96/61 01/31/22 09:44 Pulse Ox 95 01/31/22 06:04
[2022-01-31] MEDS: PRAVASTATIN 20 MG TAB PO SCH (21:16)
--- NOTE | 2022-02-01 09:39 | Progress Note ---
Subjective Date of service: 02/01/22 Principal diagnosis: Bipolar Disorder Subjective Comment: 02/01: Patient was seen today. Patient was calm and cooperative throughout interview. Patient reports she's feeling fine. Patient reports good sleep and good appetite. Patient denies SI HI AVH. 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 She reports interests in seeing her dog and doing laundry and going shopping. 01/31: The patient was seen today. She is lying in bed. She says she feels fine. She denies SI/HI or hallucinations of any kind. REVIEW OF SYSTEMS Constitutional: Negative for weight loss ENT: Negative for stridor Respiratory: Negative for cough or hemoptysis All other systems reviewed and are negative MENTAL STATUS EXAMINATION General Appearance and Behavior: Age appropriate, wearing appropriate clothes, cooperative Cooperation: cooperative Psychomotor Behavior: Psychomotor normal Mood: "fine" Affect and affective range: calm Thought Process: goal-oriented Thought Content: reality-based Speech: Normal volume, Regular rate and rhythm Suicidal Ideation: Denies Homicidal Ideation: Denies Hallucination: Denies Delusions: Denies Impulse Control: Impaired Insight and Judgment: Limited Memory: Limited Attention: limited Orientation: Alert and oriented to time and person ASSESSMENT Bipolar Disorder Alcohol Use Disorder TREATMENT Patient admitted for inpatient psychiatric evaluation, medication adjustment and close monitoring The patient's behavior, mood, sleep and appetite will be closely monitored. Patient enrolled in individual and group therapeutic sessions and encouraged to attend. Patient provided with a safe and structured environment. Patient's physical health needs will be addressed by the Hospitalist. Hospitalist Consulted Labs including CBC, CMP, Lipid profile and Hemoglobin A1C levels ordered for baseline reference Social Assessment will be completed and the Collar Padder Blindstitch will work with patient and family to ensure a suitable and safe disposition Medication adjustment will be made as clinically indicated Prescriptions signed, copied, and provided to pt at discharge: Maintain depakote 500 mg qAM and depakote 1000 mg qhs Maintain prozac 40 mg qAM Usual Wellness Cheondoism/Preservation: - Start Trazodone 50 mg po QHS & 50 mg po QHS PRN between 10 PM & 2 AM for insomnia - Start Melatonin 5 mg po QHS to promote circadian rhythm The patient agreed on the treatment plan, understood the risk, benefit, alternative treatment, potential consequence of no treatment, and gave informed consent. Estimated days: 7 Post hospital care: primary care provider, psychiatric provider Case staffed with Dr. Bernal Medications and Allergies Allergies Allergy/AdvReac Type Severity Reaction Status Date / Time No Known Allergies Allergy Verified 01/27/22 23:24 Home Medications Medication Instructions Recorded Confirmed Last Taken Type FLUoxetine HCL [PROzac] 40 mg PO DAILY 01/28/22 01/28/22 Unknown History Losartan [Cozaar] 50 mg PO QDAY 01/28/22 01/28/22 Unknown History Pravastatin [Pravachol] 20 mg PO QHS 01/28/22 01/28/22 Unknown History QUEtiapine [SEROquel] 200 mg PO HS 01/28/22 01/28/22 Unknown History amLODIPine 5 mg PO DAILY 01/28/22 01/28/22 Unknown History Divalproex ER [Depakote ER] 1,000 mg PO QHS 30 Days #60 tablet 02/01/22 Unknown Rx Divalproex ER [Depakote ER] 500 mg PO QAM 30 Days #30 tab 02/01/22 Unknown Rx FLUoxetine [PROzac] 40 mg PO QDAY 30 Days #60 capsule 02/01/22 Unknown Rx Active Meds: Active Medications Amlodipine Besylate (Amlodipine 5 Mg Tab) 5 mg PO DAILY [facility] Last Admin: 01/31/22 09:44 Dose: Not Given Divalproex Sodium (Divalproex Er 500 Mg Tab) 500 mg PO QAM [facility] Last Admin: 01/31/22 09:41 Dose: 500 mg Divalproex Sodium (Divalproex Er 500 Mg Tab) 1,000 mg PO QHS [facility] Last Admin: 01/31/22 21:16 Dose: 1,000 mg Fluoxetine HCl (Fluoxetine 20 Mg Cap) 40 mg PO QDAY [facility] Last Admin: 01/31/22 09:41 Dose: 40 mg Lorazepam (Lorazepam 2 Mg Tab) 2 mg PO Q6H PRN PRN Reason: Alcohol Withdrawal Last Admin: 01/27/22 23:30 Dose: 2 mg Losartan Potassium (Losartan 50 Mg Tab) 50 mg PO QDAY [facility] Last Admin: 01/31/22 09:43 Dose: Not Given Ondansetron HCl (Ondansetron 4 Mg Odt Tab) 4 mg PO Q8H PRN PRN Reason: Nausea And Vomiting Last Admin: 01/27/22 23:30 Dose: 4 mg Pravastatin Sodium (Pravastatin 20 Mg Tab) 20 mg PO QHS [facility] Last Admin: 01/31/22 21:16 Dose: 20 mg Results - Results Labs/Vitals: Laboratory Last Values WBC 4.4 K/mm3 (4.5-11.0) L 01/28/22 07:21 RBC 4.14 M/mm3 (3.65-5.03) 01/28/22 07:21 Hgb 13.9 gm/dl (10.1-14.3) 01/28/22 07:21 Hct 40.1 % (30.3-42.9) 01/28/22 07:21 MCV 97 fl (79-97) 01/28/22 07:21 MCH 34 pg (28-32) H 01/28/22 07:21 MCHC 35 % (30-34) H 01/28/22 07:21 RDW 15.8 % (13.2-15.2) H 01/28/22 07:21 Plt Count 189 K/mm3 (140-440) 01/28/22 07:21 Lymph % (Auto) 26.1 % (13.4-35.0) 01/28/22 07:21 [place] % (Auto) 10.7 % (0.0-7.3) H 01/28/22 07:21 Eos % (Auto) 1.8 % (0.0-4.3) 01/28/22 07:21 Baso % (Auto) 1.5 % (0.0-1.8) 01/28/22 07:21 Lymph # (Auto) 1.1 K/mm3 (1.2-5.4) L 01/28/22 07:21 [place] # (Auto) 0.5 K/mm3 (0.0-0.8) 01/28/22 07:21 Eos # (Auto) 0.1 K/mm3 (0.0-0.4) 01/28/22 07:21 Baso # (Auto) 0.1 K/mm3 (0.0-0.1) 01/28/22 07:21 Seg Neutrophils % 59.9 % (40.0-70.0) 01/28/22 07:21 Seg Neutrophils # 2.6 K/mm3 (1.8-7.7) 01/28/22 07:21 Sodium 134 mmol/L (137-145) L 01/28/22 07:21 Potassium 3.6 mmol/L (3.6-5.0) 01/28/22 07:21 Chloride 93.0 mmol/L (98-107) L 01/28/22 07:21 Carbon Dioxide 25 mmol/L (22-30) 01/28/22 07:21 Anion Gap 20 mmol/L 01/28/22 07:21 BUN 10 mg/dL (7-17) 01/28/22 07:21 Creatinine 1.2 mg/dL (0.6-1.2) 01/28/22 07:21 Estimated GFR 55 ml/min 01/28/22 07:21 BUN/Creatinine Ratio 8 % 01/28/22 07:21 Glucose 131 mg/dL (65-100) H 01/28/22 07:21 Hemoglobin A1c 5.7 % (4-6) 01/28/22 07:21 Calcium 9.8 mg/dL (8.4-10.2) 01/28/22 07:21 Total Bilirubin 1.10 mg/dL (0.1-1.2) 01/28/22 07:21 AST 36 units/L (5-40) 01/28/22 07:21 ALT 17 units/L (7-56) 01/28/22 07:21 Alkaline Phosphatase 108 units/L (35-129) 01/28/22 07:21 Total Protein 8.3 g/dL (6.3-8.2) H 01/28/22 07:21 Albumin 5.1 g/dL (3.9-5) H 01/28/22 07:21 Albumin/Globulin Ratio 1.6 % 01/28/22 07:21 Triglycerides 90 mg/dL (2-149) 01/28/22 07:21 Cholesterol 363 mg/dL (50-199) H 01/28/22 07:21 LDL Cholesterol Direct 136 mg/dL (50-130) H 01/28/22 07:21 HDL Cholesterol 246 mg/dL (40-59) H 01/28/22 07:21 Cholesterol/HDL Ratio 1.47 % 01/28/22 07:21 Hepatitis A IgM Ab Non-reactive (NonReactive) 01/28/22 07:21 Hep Bs Antigen Non-reactive (Negative) 01/28/22 07:21 Hep B Core IgM Ab Non-reactive (NonReactive) 01/28/22 07:21 Hepatitis C Antibody Non-reactive (NonReactive) 01/28/22 07:21 Last Vital Signs Temp 97.9 F 02/01/22 09:29 Pulse 70 02/01/22 09:29 Resp 18 02/01/22 06:16 BP 94/59 02/01/22 06:16 Pulse Ox 100 02/01/22 09:29
[2022-02-01] MEDS: DIVALPROEX ER 500 MG TAB PO SCH (09:41)
[2022-02-01] MEDS: FLUoxetine 20 MG CAP PO SCH (09:41)
[2022-02-01] MEDS: LOSARTAN 50 MG TAB PO SCH (09:42)
[2022-02-01] MEDS: amLODIPine 5 MG TAB PO SCH (09:43)
[2022-02-01 09:44] VITALS: BP 94/63
--- NOTE | 2022-02-01 10:33 | Discharge Summary ---
Providers - Providers Date of Admission: 01/27/22 23:15 Date of discharge: 02/01/22 Attending physician: JASON DE GUZMAN MD 01/27/22 21:34 Consult to Physician [CONS] Routine Comment: Consulting Provider: GAMA ALVARES Physician Instructions: Reason For Exam: management of medical problems Primary care physician: VALET ATTENDANT Hospitalization Reason for admission: Danger to self, Failure of Outpatient Treatment, Severe anxiety/depression Admitting Diagnosis: F31.9 - BIPOLAR DISORDER, UNSPECIFIED Condition: Stable Hospital course: The patient was provided inpatient psychiatric treatment with safe and supportive care, medication adjustment, adverse effect monitoring, medical evaluations, medical treatments, assessment and psycho-education. The patient's mood, cognition, behavior, moral support are improved and stabilized. At the time of discharge, the patient had no endangering behavior and no debilitating adverse effects. The patient agreed on potential consequences of no treatment and gave informed consent. 02/01: Patient was seen today. Patient was calm and cooperative throughout interview. Patient reports she's feeling fine. Patient reports good sleep and good appetite. Patient reports she's ready to go home to her and caretak er. She reports interests in seeing her dog and doing laundry and going shopping. She denies suicidal ideation, homicidal ideation, and hallucinations of any kind. 01/31: The patient was seen today. She is lying in bed. She says she feels fine. She denies SI/HI or hallucinations of any kind. 01/30: The patient was seen today. She is lying in bed. She says she feels better about the situation with her . She says "I'm not going to do that again," when asked about how she felt. The patient looks depressed, but she states she feels fine. She denies SI/HI or hallucinations of any kind. She will discharge tomorrow if night uneventful. 01/29: The patient was seen today. She is lying in bed. She appears depressed, a lthough she denies. Her affect if flat. She denies SI/HI. I ask her about the situation of her putting a plastic bag over her husbands head. She says "I tried to. I was tired of him calling me names." She says "I really was just trying to scare him." She denies hallucinations. 01/28: The patient was seen today. She has a history of schizoaffective disorder and bipolar, htn, seizure, osteoarthritis, diverticulitis TIA. The patient was admitted to [facility] after placing a plastic bag over her 's head, in which the caregiver intervened, according to reports. During my evaluation the patient is lying in bed. She appears withdrawn. Her affect is flat. She denies feeling depressed. She states "I feel okay." She says she was admitted because she got into an argument with her . She says "I made a statement that I would kill my but I didn't mean it." She does not mention the plastic bag incident. The patient says she was drinking. She says she "doesn't drink that much but on weekends." The patient says she drinks a cup of liquor and beer on the weekend. She could not recall what medications she takes for her bipolar. She denies hallucinations of any kind. Disposition: 01 HOME / SELF CARE / HOMELESS Time spent for discharge: 40 Allergies/Adverse Reactions: Allergies No Known Allergies Allergy (Verified 01/27/22 23:24) Vital Signs: Last Vital Signs Temp 97.9 F 02/01/22 09:29 Pulse 88 02/01/22 09:43 Resp 18 02/01/22 06:16 BP 94/63 02/01/22 09:43 Pulse Ox 100 02/01/22 09:29 Last Lab: Laboratory Last Values WBC 4.4 K/mm3 (4.5-11.0) L 01/28/22 07:21 RBC 4.14 M/mm3 (3.65-5.03) 01/28/22 07:21 Hgb 13.9 gm/dl (10.1-14.3) 01/28/22 07:21 Hct 40.1 % (30.3-42.9) 01/28/22 07:21 MCV 97 fl (79-97) 01/28/22 07:21 MCH 34 pg (28-32) H 01/28/22 07:21 MCHC 35 % (30-34) H 01/28/22 07:21 RDW 15.8 % (13.2-15.2) H 01/28/22 07:21 Plt Count 189 K/mm3 (140-440) 01/28/22 07:21 Lymph % (Auto) 26.1 % (13.4-35.0) 01/28/22 07:21 [place] % (Auto) 10.7 % (0.0-7.3) H 01/28/22 07:21 Eos % (Auto) 1.8 % (0.0-4.3) 01/28/22 07:21 Baso % (Auto) 1.5 % (0.0-1.8) 01/28/22 07:21 Lymph # (Auto) 1.1 K/mm3 (1.2-5.4) L 01/28/22 07:21 [place] # (Auto) 0.5 K/mm3 (0.0-0.8) 01/28/22 07:21 Eos # (Auto) 0.1 K/mm3 (0.0-0.4) 01/28/22 07:21 Baso # (Auto) 0.1 K/mm3 (0.0-0.1) 01/28/22 07:21 Seg Neutrophils % 59.9 % (40.0-70.0) 01/28/22 07:21 Seg Neutrophils # 2.6 K/mm3 (1.8-7.7) 01/28/22 07:21 Sodium 134 mmol/L (137-145) L 01/28/22 07:21 Potassium 3.6 mmol/L (3.6-5.0) 01/28/22 07:21 Chloride 93.0 mmol/L (98-107) L 01/28/22 07:21 Carbon Dioxide 25 mmol/L (22-30) 01/28/22 07:21 Anion Gap 20 mmol/L 01/28/22 07:21 BUN 10 mg/dL (7-17) 01/28/22 07:21 Creatinine 1.2 mg/dL (0.6-1.2) 01/28/22 07:21 Estimated GFR 55 ml/min 01/28/22 07:21 BUN/Creatinine Ratio 8 % 01/28/22 07:21 Glucose 131 mg/dL (65-100) H 01/28/22 07:21 Hemoglobin A1c 5.7 % (4-6) 01/28/22 07:21 Calcium 9.8 mg/dL (8.4-10.2) 01/28/22 07:21 Total Bilirubin 1.10 mg/dL (0.1-1.2) 01/28/22 07:21 AST 36 units/L (5-40) 01/28/22 07:21 ALT 17 units/L (7-56) 01/28/22 07:21 Alkaline Phosphatase 108 units/L (35-129) 01/28/22 07:21 Total Protein 8.3 g/dL (6.3-8.2) H 01/28/22 07:21 Albumin 5.1 g/dL (3.9-5) H 01/28/22 07:21 Albumin/Globulin Ratio 1.6 % 01/28/22 07:21 Triglycerides 90 mg/dL (2-149) 01/28/22 07:21 Cholesterol 363 mg/dL (50-199) H 01/28/22 07:21 LDL Cholesterol Direct 136 mg/dL (50-130) H 01/28/22 07:21 HDL Cholesterol 246 mg/dL (40-59) H 01/28/22 07:21 Cholesterol/HDL Ratio 1.47 % 01/28/22 07:21 Hepatitis A IgM Ab Non-reactive (NonReactive) 01/28/22 07:21 Hep Bs Antigen Non-reactive (Negative) 01/28/22 07:21 Hep B Core IgM Ab Non-reactive (NonReactive) 01/28/22 07:21 Hepatitis C Antibody Non-reactive (NonReactive) 01/28/22 07:21 - Discharge Diagnoses (1) Bipolar disorder Status: Acute Core Measure Documentation - Palliative Care Palliative Care/ Comfort Measures: Not Applicable - Core Measures Any of the following diagnoses?: none Exam - Constitutional Vitals: Temp Pulse Resp BP Pulse Ox 97.9 F 88 18 94/63 100 02/01/22 09:29 02/01/22 09:43 02/01/22 06:16 02/01/22 09:43 02/01/22 09:29 General appearance: Present: no acute distress - EENT Eyes: Present: PERRL ENT: hearing intact - Neck Neck: Present: supple, normal ROM - Respiratory Respiratory effort: normal Plan Activity: advance as tolerated Weight Bearing Status: Weight Bear as Tolerated Diet: low fat, low cholesterol, low salt Care Plan Goals: Maintain good and stable mental health Plan of Treatment: The patient should be compliant with medications, not to use drugs, and not to drink alcohol. The patient understands that if suicidal ideas, homicidal ideas or any endangering feeling arise, the patient should seek assistance including, but not limited to crisis hotline, and emergency room. Assessment: Bipolar Disorder Alcohol Use Disorder Follow up with: PRIMARY CARE, [Primary Care Provider] - 7 Days Prescriptions: Divalproex ER [Depakote ER] 1,000 mg PO QHS 30 Days #60 tablet Divalproex ER [Depakote ER] 500 mg PO QAM 30 Days #30 tab FLUoxetine [PROzac] 40 mg PO QDAY 30 Days #60 capsule
== END 2022-02-01 18:45 | disposition home or self-care (01) | DRG 885 ==
LOC: UNDOADMIN 18:15 → 3A 18:15 → 5A 23:15
PROVIDERS: ADMIT Psychiatry & Neurology Psychiatry; ATTEND Psychiatry & Neurology Psychiatry
DX: F31.9 Bipolar disorder, unspecified (principal); E87.1 Hypo-osmolality and hyponatremia; F01.51 Vascular dementia, unspecified severity, with behavioral disturbance; G40.909 Epilepsy, unspecified, not intractable, without status epilepticus; I10 Essential (primary) hypertension; E78.5 Hyperlipidemia, unspecified; K21.9 Gastro-esophageal reflux disease without esophagitis; M19.90 Unspecified osteoarthritis, unspecified site; Z86.73 Personal history of transient ischemic attack (TIA), and cerebral infarction without residual deficits; Z79.899 Other long term (current) drug therapy
CPT/HCPCS: 36415; 80053; 80061; 80074; 83036; 85025; G0378; J3490; Q0162